=== PATIENT | male | born 1975 | race Hispanic/Latino ===

== ENCOUNTER 2022-06-01 10:47 | Emergency (ER) | payer BC ==
[2022-06-01 13:36] LABS: Hematocrit 52.4 % (35.5-45.6); Hemoglobin 18.5 gm/dl (11.8-15.2); Mean Corpuscular HGB Conc 35 % (32-34); Mean Corpuscular Volume 85 fl (84-94); Platelet Count 300 K/mm3 (140-440); Red Blood Count 6.19 M/mm3 (3.65-5.03); Red Cell Distribution Width 13.5 % (13.2-15.2)
[2022-06-01 14:44] LABS: Alanine Aminotransferase 41 units/L (7-56); Albumin 5.2 g/dL (3.9-5); Blood Urea Nitrogen 23 mg/dL (9-20); Calcium 10.2 mg/dL (8.4-10.2); Hemolysis Index 17
[2022-06-01 14:45] LABS: BUN/Creatinine Ratio 33
--- NOTE | 2022-06-01 17:47 | Emergency Department Report ---
ED General Adult HPI - General Chief complaint: Medical Clearance Stated complaint: VOMITING Time Seen by Provider: 06/01/22 17:07 Source: EMS Mode of arrival: Stretcher Limitations: No Limitations - History of Present Illness Initial comments: 47-year-old male with no significant past medical history reports to the ER with vomiting and body aches and leg cramps for about 1 day. 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 And reports having times of dehydration. Patient reports dark urine. Body aches with leg cramps. No shortness of breath or chest discomfort reported. Patient reports no other acute symptoms at this time. Patient reports that he has an upcoming urology appointment this upcoming week in which he is going to get a urology scope due to having blood in his urine for several months. - Related Data Home Medications Medication Instructions Recorded Confirmed Last Taken No Known Home Medications [No 01/13/16 01/13/16 Unknown Reported Home Medications] Allergies Allergy/AdvReac Type Severity Reaction Status Date / Time No Known Allergies Allergy Verified 06/01/22 10:55 ED Review of Systems ROS: Stated complaint: VOMITING Other details as noted in HPI Comment: All other systems reviewed and negative Gastrointestinal: nausea, vomiting. denies: abdominal pain, diarrhea Genitourinary: hematuria Musculoskeletal: arthralgia, myalgia ED Past Medical Hx - Past Medical History Previous Medical History?: No - Social History Smoking Status: Unknown if ever smoked - Medications Home Medications: Home Medications Medication Instructions Recorded Confirmed Last Taken Type No Known Home Medications [No 01/13/16 01/13/16 Unknown History Reported Home Medications] ED Physical Exam - General Limitations: No Limitations General appearance: alert, in no apparent distress - Head Head exam: Present: atraumatic, normocephalic - Eye Eye exam: Present: normal appearance - ENT ENT exam: Present: mucous membranes moist - Neck Neck exam: Present: normal inspection - Respiratory Respiratory exam: Present: normal lung sounds bilaterally. Absent: respiratory distress - Cardiovascular Cardiovascular Exam: Present: regular rate, normal rhythm. Absent: systolic murmur, diastolic murmur, rubs, gallop - GI/Abdominal GI/Abdominal exam: Present: soft, normal bowel sounds - Rectal Rectal exam: Present: deferred - Extremities Exam Extremities exam: Present: normal inspection - Back Exam Back exam: Present: normal inspection - Neurological Exam Neurological exam: Present: alert, oriented X3 - Psychiatric Psychiatric exam: Present: normal affect, normal mood - Skin Skin exam: Present: warm, dry, intact, normal color. Absent: rash ED Course Vital Signs 06/01/22 06/01/22 06/01/22 10:52 19:15 23:23 Temperature 98 F 98.2 F Pulse Rate 94 H 93 H 90 Respiratory 18 20 12 Rate Blood Pressure 146/98 139/86 144/91 [Left] O2 Sat by Pulse 97 97 99 Oximetry ED Medical Decision Making - Lab Data Result diagrams: 06/01/22 12:58 06/01/22 20:36 - Medical Decision Making 47-year-old male with no significant past medical history reports to the ER with vomiting and body aches and leg cramps for about 1 day. 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 And reports having times of dehydration. Patient reports dark urine. Body aches with leg cramps. No shortness of breath or chest discomfort reported. Patient reports no other acute symptoms at this time. Patient reports that he has an upcoming urology appointment this upcoming week in which he is going to get a urology scope due to having blood in his urine for several months. No acute findings noted on physical exam. WBC elevated at 13.9no clinical suspicion of infectious process noted. CK is 641pending repeat CK to know if or a downward trend. BUN elevated at 23 creatinine 0.7no signs of acute kidney injury.. No imaging is needed. Patient has received 1 L of normal saline prior to arrival by EMS. Patient to receive second liter of normal saline. If CK is not 5 times high normal limits on repeat and no abnormal findings on repeat BMP patient is to be discharged home. Patient encouraged to increase his oral intake of fluids as well as to drink more fluids while he is at work and take some breaks while at work and not to overexert himself while working in heat. CK repeat in 652, BMP repeat no acute process noted. No clinical concerns for rhabdo at this time. Patient stable for discharge. Patient agrees with plan of care and verbalizes understanding. Patient informed if symptoms are to get worse to report back to the ER. Vital Signs 06/01/22 06/01/22 06/01/22 10:52 19:15 23:23 Temperature 98 F 98.2 F Pulse Rate 94 H 93 H 90 Respiratory 18 20 12 Rate Blood Pressure 146/98 139/86 144/91 [Left] O2 Sat by Pulse 97 97 99 Oximetry Labs 06/01/22 06/01/22 06/01/22 12:58 12:58 12:58 WBC 13.9 H RBC 6.19 H Hgb 18.5 H Hct 52.4 H MCV 85 MCH 30 MCHC 35 H RDW 13.5 Plt Count 300 Sodium 139 Potassium 4.1 Chloride 101.3 Carbon Dioxide 22 Anion Gap 20 BUN 23 H Creatinine 0.7 L Estimated GFR > 60 BUN/Creatinine Ratio 33 Glucose 108 H Calcium 10.2 Magnesium 2.30 Total Bilirubin 1.30 H AST 37 ALT 41 Alkaline Phosphatase 110 Total Creatine Kinase 641 H Total Protein 8.4 H Albumin 5.2 H Albumin/Globulin Ratio 1.6 Plasma/Serum Alcohol < 0.01 Lab Results 06/01/22 06/01/22 06/01/22 Range/Units 12:58 12:58 12:58 WBC 13.9 H (4.5-11.0) K/mm3 RBC 6.19 H (3.65-5.03) M/mm3 Hgb 18.5 H (11.8-15.2) gm/dl Hct 52.4 H (35.5-45.6) % MCV 85 (84-94) fl MCH 30 (28-32) pg MCHC 35 H (32-34) % RDW 13.5 (13.2-15.2) % Plt Count 300 (140-440) K/mm3 Sodium 139 (137-145) mmol/L Potassium 4.1 (3.6-5.0) mmol/L Chloride 101.3 (98-107) mmol/L Carbon Dioxide 22 (22-30) mmol/L Anion Gap 20 mmol/L BUN 23 H (9-20) mg/dL Creatinine 0.7 L (0.8-1.3) mg/dL Estimated GFR > 60 ml/min BUN/Creatinine Ratio 33 % Glucose 108 H (75-100) mg/dL Calcium 10.2 (8.4-10.2) mg/dL Magnesium 2.30 (1.7-2.3) mg/dL Total Bilirubin 1.30 H (0.1-1.2) mg/dL AST 37 (5-40) units/L ALT 41 (7-56) units/L Alkaline Phosphatase 110 (35-129) units/L Total Creatine Kinase 641 H (55-170) units/L Total Protein 8.4 H (6.3-8.2) g/dL Albumin 5.2 H (3.9-5) g/dL Albumin/Globulin Ratio 1.6 % Urine Color (Yellow) Urine Turbidity (Clear) Urine pH (5.0-7.0) Ur Specific Monitor (1.003-1.030) Urine Protein (Negative) mg/dL Urine Glucose (UA) (Negative) mg/dL Urine Ketones (Negative) mg/dL Urine Blood (Negative) Urine Nitrite (Negative) Urine Bilirubin (Negative) Urine Urobilinogen (<2.0) mg/dL Ur Leukocyte Esterase (Negative) Urine WBC (Auto) (0.0-6.0) /HPF Urine RBC (Auto) (0.0-6.0) /HPF U Epithel Cells (Auto) (0-13.0) /HPF Urine Bacteria (Auto) (Negative) /HPF Urine Mucus /HPF Plasma/Serum Alcohol < 0.01 (0-0.07) % 06/01/22 06/01/22 Range/Units 20:36 Unknown WBC (4.5-11.0) K/mm3 RBC (3.65-5.03) M/mm3 Hgb (11.8-15.2) gm/dl Hct (35.5-45.6) % MCV (84-94) fl MCH (28-32) pg MCHC (32-34) % RDW (13.2-15.2) % Plt Count (140-440) K/mm3 Sodium 136 L (137-145) mmol/L Potassium 3.5 L (3.6-5.0) mmol/L Chloride 100.3 (98-107) mmol/L Carbon Dioxide 24 (22-30) mmol/L Anion Gap 15 mmol/L BUN 22 H (9-20) mg/dL Creatinine 0.6 L (0.8-1.3) mg/dL Estimated GFR > 60 ml/min BUN/Creatinine Ratio 37 % Glucose 105 H (75-100) mg/dL Calcium 9.2 (8.4-10.2) mg/dL Magnesium (1.7-2.3) mg/dL Total Bilirubin (0.1-1.2) mg/dL AST (5-40) units/L ALT (7-56) units/L Alkaline Phosphatase (35-129) units/L Total Creatine Kinase 652 H (55-170) units/L Total Protein (6.3-8.2) g/dL Albumin (3.9-5) g/dL Albumin/Globulin Ratio % Urine Color Latoya (Yellow) Urine Turbidity Clear (Clear) Urine pH 6.0 (5.0-7.0) Ur Specific Monitor 1.026 (1.003-1.030) Urine Protein 30 mg/dl (Negative) mg/dL Urine Glucose (UA) Neg (Negative) mg/dL Urine Ketones Tr (Negative) mg/dL Urine Blood Mod (Negative) Urine Nitrite Neg (Negative) Urine Bilirubin Neg (Negative) Urine Urobilinogen < 2.0 (<2.0) mg/dL Ur Leukocyte Esterase Neg (Negative) Urine WBC (Auto) 4.0 (0.0-6.0) /HPF Urine RBC (Auto) 70.0 (0.0-6.0) /HPF U Epithel Cells (Auto) 1.0 (0-13.0) /HPF Urine Bacteria (Auto) 1+ (Negative) /HPF Urine Mucus 3+ /HPF Plasma/Serum Alcohol (0-0.07) % Critical care attestation.: If time is entered above; I have spent that time in minutes in the direct care of this critically ill patient, excluding procedure time. ED Disposition Clinical Impression: Dehydration after exertion, Generalized body aches Disposition: 01 HOME / SELF CARE / HOMELESS Is pt being admited?: No Does the pt Need Aspirin: No Condition: Stable Instructions: Muscle Pain, Adult, Dehydration, Adult, [id number], Rehydration, Adult, Musculoskeletal Pain, Dehydration, Adult Additional Instructions: Follow-up with your primary care provider as needed. Report back to the ER symptoms are to get worse. Keep your appointment this upcoming week with your urology provider. Referrals: PRIMARY CARE, [Primary Care Provider] - 3-5 Days Forms: Work/School Release Form(ED) Time of Disposition: 21:28
[2022-06-01] MEDS ORDERED: SODIUM CHLORIDE 0.9% 1000 ML 1,000 ML IV ONE (17:52)
[2022-06-01] MEDS ORDERED: ONDANSETRON 4 MG/2 ML INJ IV ONE (18:06)
[2022-06-01 20:02] LABS: Bilirubin,Urine NEG (Negative); Blood,Urine MOD (Negative); Color,Urine Amber (Yellow); Urobilinogen,Urine < 2.0 mg/dL (<2.0)
[2022-06-01 20:11] LABS: Bacteria,Urine 1+ /HPF (Negative); Mucus,Urine 3+ /HPF
[2022-06-01 21:20] LABS: Blood Urea Nitrogen 22 mg/dL (9-20); Calcium 9.2 mg/dL (8.4-10.2); Hemolysis Index 17
[2022-06-01 21:22] LABS: BUN/Creatinine Ratio 37
[2022-06-01 23:24] VITALS: BP 144/91
--- NOTE | 2022-06-02 19:44 | Electrocardiograph Report ---
[facility] Test Date: 2022-06-01 Test Time: 11:09:28 Pat Name: HUBER CORBETT Department: Room: Gender: M [employer]: ER : 1975 Requested By: NICHELLE SANDOVAL Order Number: [id number] Reading MD: Mora Sharma Measurements Intervals [place] Rate: 88 P: -3 MN: 126 QRS: 21 QRSD: 86 T: 21 QT: 380 QTc: 461 Interpretive Statements Sinus rhythm No previous ECG available for comparison Electronically Signed On 06-02-2022 19:44:31 EDT by Mora Sharma
== END 2022-06-01 23:24 | disposition home or self-care (01) ==
LOC: ED 10:47
DX: E86.0 Dehydration (principal); M79.10 Myalgia, unspecified site
CPT/HCPCS: 36415; 80048; 80053; 81001; 82550; 83735; 85027; 93005; 96361; 96374; 99284; J2405; J7030; 80320; G0480